=== PATIENT | female | born 1995 | race African-American/Black ===

== ENCOUNTER 2020-06-13 13:50 | Emergency (ER) | payer BC, SELFPAY ==
[2020-06-13] VITALS (21 sets, daily range): BP systolic 108–165; BP diastolic 60–96; PULSE 58–98; RESP 14–27; TEMP 36.1; O2SAT 90–100
--- NOTE | ~2020-06-13 | CT_ITS ---
EXAMINATION: CT brain wo con EXAM DATE: 06/13/2020 14:38 INDICATION: Severe headache. Dizziness. Nausea and vomiting. TECHNIQUE: Spiral CT of the head was performed without contrast. Axial, coronal and sagittal images were reviewed. The dose-length product (DLP) for this examination was 605.33 mGy-cm. The exposure w as tailored according to patient size, and iterative reconstruction (ASIR) was used as additional dos e reduction technique. There is no prior study for comparison. FINDINGS: There is no acute intraparenchymal hemorrhage. No evidence of intraparenchymal brain mass lesion. No evidence of acute infarction. There is no mass effect or midline shift. The ventricles are normal in size. There are no extra-axial collections. There are no acute calvarial fractures. T he orbits are unremarkable. Soft tissue is unremarkable. The visualized sinuses and mastoid air dinah ls are well aerated. IMPRESSION: 1. No acute intracranial findings. Reviewed, dictated and finalized at location B. ALLATION SPECIALIST
--- NOTE | 2020-06-13 14:06 | PC.NURSE ---
Per [facility] EDP Jackson Ambriz to order head CT due to know PMH of h/a, confusion, dizziness.
[2020-06-13 14:29] LABS: Basophils Percent Auto 0.3 % (0.2-1.2); Eosinophils Absolute Auto 0.1 K/mm3 (0-0.3); Hematocrit 37.7 % (37.0-47.0); Hemoglobin 11.5 g/dL (12.0-15.0); Immature Granulocyte Absolute 0.01 K/mm3 (0.00-0.031); Immature Granulocyte Percent A 0.2 % (0-0.5); Lymphocytes Absolute Auto 2.51 K/mm3 (0.9-3.2); Lymphocytes Percent Auto 43.5 % (18.3-44.2); Mean Corpuscular HGB Conc 30.5 g/dl (32-36); Mean Corpuscular Hemoglobin 25.3 pg (26-34); Mean Corpuscular Volume 82.9 fl (80-100); Mean Platelet Volume 8.7 fl (7.4-10.4); Monocytes Absolute Auto 0.4 K/mm3 (0.1-0.6); Monocytes Percent Auto 6.9 % (2.6-8.5); Neutrophils Absolute Auto 2.8 K/mm3 (1.3-6.7); Neutrophils Percent Auto 48.1 % (45.5-73.1); Platelet Count Result 354 k/mm3 (150-375); Red Blood Count 4.55 M/mm3 (4.2-5.4); Red Cell Distribution Width 13.7 % (11.5-14.5); White Blood Count 5.8 K/mm3 (4.5-10.0)
[2020-06-13 14:41] LABS: Anion Gap 7 mmol/L (8-16); Blood Urea Nitrogen 7 mg/dL (7-17); Calcium 8.7 mg/dL (8.4-10.2); Carbon Dioxide 29 mmol/L (22-30); Chloride 104 mmol/L (98-107); Estimated CRCL calculation 120 ml/min; Estimated Glomerular Filt Rate > 60; Glucose 87 mg/dL (65-105); Sodium 140 mmol/L (137-145)
--- NOTE | 2020-06-13 15:33 | ED.HA ---
HPI - Headache General Chief Complaint: Headache Stated Complaint: weakness, confusion, lethargy Time Seen by Provider: 06/13/20 15:22 History of Present Illness HPI Narrative: Brought in by EMS for REYNA, weakness, dizziness, confusion. She says that she has not felt well for a few days. Today while at work she developed a REYNA, blurry vision, nausea, and dizziness. She had the same symptoms a few days ago and was seen at urgent care. No fever, weakness, sick contacts. She has not tried anything for her symptoms. Related Data Allergies Allergy/AdvReac Type Severity Reaction Status Date / Time No Known Allergies Allergy Verified 06/13/20 16:14 Review of Systems Review of Systems: All systems reviewed & are unremarkable except as noted in HPI and below Constitutional: Constitutional: Denies chills, Denies fever(s) and Reports weakness ENT: Reports dizziness and Denies sore throat Cardiovascular: Cardiovascular: Denies chest pain Respiratory: Respiratory: Denies dyspnea Gastrointestinal: Gastrointestinal: Denies abdominal pain and Reports nausea Genitourinary: Genitourinary: Denies dysuria Neurologic: Reports confusion, Reports dizziness and Reports weakness [facility] Past Medical History Medical History (Updated 06/13/20 @ 18:45 by Pillo Nova MD) Healthy adult Social History Social History (Updated 06/13/20 @ 18:43 by Pillo Nova MD) Smoking status: Never smoker Gender identity (if verbalized by the patient): Female Exam Const: General: healthy appearing, no acute distress and alert Orientation/consciousness: patient oriented x3 HENMT: Head: normal to inspection Resp: Effort & Inspection: normal respiratory effort Auscultation: clear to auscultation bilaterally Cardio: Rate: regular rate Rhythm: regular rhythm GI: GI Palp: Yes Soft to palpation and No Tenderness to palpation present (GI) Skin: General skin exam: normal color Neuro: General: patient oriented x3, moves all extremities, no focal motor deficits and CN's II-XI intact bilaterally Cranial nerves: Yes Nystagmus present horizontal Speech: normal speech Extrem: General: normal to inspection Course Vital Signs Vital signs: Vital Signs Temperature 36.1 C L 06/13/20 13:52 Pulse Rate 71 06/13/20 13:52 Respiratory Rate 14 06/13/20 13:52 Blood Pressure 123/79 06/13/20 13:52 Pulse Oximetry 100 06/13/20 13:52 Temperature 36.1 C L 06/13/20 13:52 Pulse Rate 89 06/13/20 19:10 Respiratory Rate 20 06/13/20 19:10 Blood Pressure 126/72 06/13/20 19:10 Pulse Oximetry 100 06/13/20 19:10 MDM - Headache MDM Narrative Medical decision making narrative: She appears to have mild nystagmus, although blinks continuously making it difficult to be sure. CT negative. Labs unremarkable. Feeling better after fluids, meclizine, and IV acetaminophen. Differential Diagnosis Differential diagnosis: Likely migraine and tension headache Medical Records Attestation: I reviewed the patient's medical records. Lab Data Attestation: I reviewed the patient's lab results. Result diagrams: 06/13/20 14:20 06/13/20 14:20 Labs: Lab Results 06/13/20 06/13/20 06/13/20 Range/Units 14:20 14:20 15:33 WBC 5.8 (4.5-10.0) K/mm3 RBC 4.55 (4.2-5.4) M/mm3 Hgb 11.5 L (12.0-15.0) g/dL Hct 37.7 (37.0-47.0) % MCV 82.9 (80-100) fl MCH 25.3 L (26-34) pg MCHC 30.5 L (32-36) g/dl RDW 13.7 (11.5-14.5) % Plt Count 354 (150-375) k/mm3 MPV 8.7 (7.4-10.4) fl Immature Gran % (Auto) 0.2 (0-0.5) % Neut % (Auto) 48.1 (45.5-73.1) % Lymph % (Auto) 43.5 (18.3-44.2) % O'Brien % (Auto) 6.9 (2.6-8.5) % Eos % (Auto) 1.0 (0-4.4) % Baso % (Auto) 0.3 (0.2-1.2) % Lymph # (Auto) 2.51 (0.9-3.2) K/mm3 O'Brien # (Auto) 0.4 (0.1-0.6) K/mm3 Eos # (Auto) 0.1 (0-0.3) K/mm3 Baso # (Auto) 0.0 (0.0-0.1) K/mm3 Abs Immat Gran (auto
[2020-06-13 15:50] LABS: Add Urine Microscopic? YES; Appearance Urine Clear (Clear); Bilirubin Urine Negative (Negative); Blood Urine 3+ (Negative); Color Urine Yellow (Yellow); Glucose Urine UA Negative (Negative); Ketones Urine Negative (Negative); Leukocyte Esterase Ur Negative LEU/UL (Negative); Mucus Urine Rare /lpf; Nitrate Urine Negative (Negative); Protein Urine 1+ mg/dL (Negative); RBC Urine >75 /hpf (0-2); Specific Grav Ur 1.025 (1.001-1.035); Squamous Epithelial Cell Urine Occasional /hpf (Few); Urobilinogen Urine Negative mg/dL (<2.0); WBC Urine 0-3 /hpf
[2020-06-13 16:05] LABS: Amphetamine Screen Urine Negative (Negative); Barbiturate Screen Urine Negative (Negative); Benzodiazepines Screen Urine Negative (Negative); Cannabinoid Screen Urine Negative (Negative); Cocaine Screen Urine Negative (Negative); Methadone Screen Urine Negative (Negative); Opiate Screen Urine Negative (Negative); Phencyclidine Screen Urine Negative (Negative)
[2020-06-13] MEDS: SODIUM CHLORIDE 0.9% IV 1,000 ML 999 ML IV CONT (16:16)
[2020-06-13] MEDS: METOCLOPRAMIDE HCL INJ 10 MG/2 ML VIAL IV PUSH (16:16)
[2020-06-13] MEDS: MECLIZINE HCL 25 MG TABLET PO (16:16)
== END 2020-06-13 19:15 | disposition home or self-care (01) ==
PROVIDERS: Emergency Medicine; Emergency Provider Emergency Medicine; PCP Internal Medicine
DX: R42 Dizziness and giddiness (principal)
CPT/HCPCS: 36415; 70450; 80048; 80307; 81001; 85025; 96365; 96375; 99284; A9270; J0131; J2765; J7030

== ENCOUNTER → 2020-11-14 07:24 | Outpatient (CLI) | payer BC, SELFPAY ==
[2020-11-14 12:16] LABS: Influenza Control Positive
[2020-11-14 19:39] LABS: SARS-CoV-2 RNA PCR Negative
== END ==
PROVIDERS: PCP Internal Medicine; Visit Provider Clinical Nurse Specialist
DX: Z20.822 Contact with and (suspected) exposure to COVID-19 (principal); J02.9 Acute pharyngitis, unspecified
CPT/HCPCS: 87804; C9803; U0003; U0005

== ENCOUNTER 2021-11-15 14:55 | Emergency (ER) | payer BC, SELFPAY ==
[2021-11-15 14:56] VITALS: BP 127/82; PULSE 121; RESP 17; TEMP 37.1; O2SAT 98
--- NOTE | 2021-11-15 16:04 | ED.GENADULT ---
HPI - General Adult General Chief complaint: Upper Respiratory Infection Stated complaint: cough, headache, fever Time Seen by Provider: 11/15/21 15:22 Source: patient Mode of arrival: ambulatory Limitations: no limitations History of Present Illness HPI narrative: Patient is 26 years old -[place] female presents with headache, sore throat, coughing, fever, chills started 4 days ago. Patient denies any nausea, vomiting, abdominal pain, chest pain or shortness of breath. Related Data Home Medications Medication Instructions Recorded Confirmed ferrous sulfate 325 mg (65 mg 325 mg PO DAILY 08/22/20 11/13/20 iron) tablet norethindrone acetate 1.5 1 tablet PO DAILY 05/19/21 mg-ethinyl estradiol 30 mcg tablet Allergies Allergy/AdvReac Type Severity Reaction Status Date / Time amoxicillin Allergy Red body Verified 05/19/21 08:27 and aches Review of Systems Review of Systems: CONSTITUTIONAL: Denies fever, chills, or sweats. EYES: Denies visual changes, redness, or discharge. ENT: Denies rhinorrhea, congestion, sore throat, or otalgia. CARDIOVASCULAR: Denies chest pain, palpitations, or edema. RESPIRATORY: Denies cough or dyspnea. GASTROINTESTINAL: Denies abdominal pain, nausea, vomiting, or diarrhea. GENITOURINARY: Denies dysuria or hematuria. SKIN: Denies rash or itching. MUSCULOSKELETAL: Denies back pain, joint pain, or myalgia. NEUROLOGIC: Denies headache, numbness, or weakness. PSYCHIATRIC: Denies anxiety or depression. PMFSH Past Medical History Medical History Healthy adult Migraines Social History Social History Social History: caffeine-soda Smoking status: Never smoker Alcohol intake: current Alcohol use details: occasionall-Wine Gender identity (if verbalized by the patient): Female Exam Narrative: General appearance: Well-developed, well-nourished Skin: Normal color Head: Normocephalic, nontraumatic Eyes: Clear conjunctiva ENT: Erythematous oropharynx l, ears normal, nose normal Neck: Supple, nontender Chest and respiratory: Airway patent, no respiratory distress, no accessory muscle use Heart: Regular rate/rhythm Abdomen: Soft, nontender, no organomegaly, quiet bowel sounds Vascular: Normal peripheral pulses, normal capillary refill. Musculoskeletal: Normal range of motion, nontender back Neurologic: Alert and oriented ?3, GRIT BLASTER is normal as tested, no gross motor deficit Course Course Emergency Course: Patient had a diagnosis of influenza A, started 4 days ago. Patient is out of the window for Tamiflu treatment. Patient is getting better. Vital Signs Vital signs: Vital Signs Temperature 37.1 C 11/15/21 14:56 Pulse Rate 121 H 11/15/21 14:56 Respiratory Rate 11/15/21 14:56 Blood Pressure 127/82 11/15/21 14:56 Pulse Oximetry 98 11/15/21 14:56 Temperature 37.1 C 11/15/21 14:56 Pulse Rate 121 H 11/15/21 14:56 Respiratory Rate 11/15/21 14:56 Blood Pressure 127/82 11/15/21 14:56 Pulse Oximetry 98 11/15/21 14:56 Medical Decision Making Differential Diagnosis Differential Diagnosis: Viral syndrome, Covid, influenza Vital Signs Vital Signs: Vital Signs Temperature 37.1 C 11/15/21 14:56 Pulse Rate 121 H 11/15/21 14:56 Respiratory Rate 11/15/21 14:56 Blood Pressure 127/82 11/15/21 14:56 Pulse Oximetry 98 11/15/21 14:56 Temperature 37.1 C 11/15/21 14:56 Pulse Rate 121 H 11/15/21 14:56 Respiratory Rate 11/15/21 14:56 Blood Pressure 127/82 11/15/21 14:56 Pulse Oximetry 98 11/15/21 14:56 Lab Data
[2021-11-15 16:32] LABS: Influenza A QL RT-PCR Positive (Negative); Influenza B QL RT-PCR Negative (Negative); SARS-CoV-2 RNA PCR Negative
== END 2021-11-15 17:09 | disposition home or self-care (01) ==
PROVIDERS: Emergency Provider Emergency Medicine; PCP Internal Medicine
DX: J10.1 Influenza due to other identified influenza virus with other respiratory manifestations (principal); Z20.822 Contact with and (suspected) exposure to COVID-19
CPT/HCPCS: 87502; 87804; 99283; C9803; U0003; U0005

== ENCOUNTER 2022-09-10 11:39 | Emergency (ER) | payer BC, SELFPAY ==
--- NOTE | ~2022-09-10 | XR_ITS ---
EXAMINATION: XR chest 2V DATE: 09/10/2022 12:20 INDICATION: Mid chest pain TECHNIQUE: PA and lateral views of the chest are obtained. COMPARISON: None available FINDINGS: The lungs are free of acute opacities. No pleural effusion or pneumothorax. The heart size is normal. The visualized bones and soft tissues are unremarkable. IMPRESSION: 1. No acute cardiopulmonary abnormality. Reviewed, dictated and finalized at location B. CY DIRECTOR
--- NOTE | ~2022-09-10 | US_ITS ---
EXAMINATION: US abdomen limited DATE: 09/10/2022 15:44 INDICATION: Right upper quadrant abdominal pain. TECHNIQUE: Multiple grayscale and Doppler ultrasound images of the abdomen were obtained. COMPARISON: None FINDINGS: The pancreas is obscured by bowel gas. The liver is normal without focal lesion. There is n ormal flow in main portal vein. The gallbladder is normal in size. No gallstones or gallbladder wall thickening. There is no sonographic Zarate sign. The common duct is normal and measures 4 mm. IMPRESSION: 1. Normal right upper quadrant ultrasound. Reviewed, dictated and finalized at location A. DERER HAND
--- NOTE | 2022-09-10 11:49 | ECG_ITS ---
Measurements Intervals [place] Rate: 82 P: 17 SD: 192 QRS: 35 QRSD: 93 T: 29 QT: 326 QTc: 382 Interpretive Statements SINUS RHYTHM NO PREVIOUS ECG AVAILABLE FOR COMPARISON Electronically Signed On 09-11-2022 8:14:23 FIREWALL ENGINEER by Kaycee De Los Santos M.D.
[2022-09-10 12:08] LABS: Basophils Percent Auto 0.3 % (0.2-1.2); Eosinophils Absolute Auto 0.1 K/mm3 (0-0.3); Eosinophils Percent Auto 0.8 % (0-4.4); Hematocrit 35.7 % (37.0-47.0); Immature Granulocyte Absolute 0.03 K/mm3 (0.00-0.031); Immature Granulocyte Percent A 0.4 % (0-0.5); Lymphocytes Absolute Auto 2.87 K/mm3 (0.9-3.2); Lymphocytes Percent Auto 39.4 % (18.3-44.2); Mean Corpuscular HGB Conc 30.8 g/dl (32-36); Mean Corpuscular Hemoglobin 24.4 pg (26-34); Mean Corpuscular Volume 79.2 fl (80-100); Mean Platelet Volume 8.6 fl (7.4-10.4); Monocytes Absolute Auto 0.5 K/mm3 (0.1-0.6); Monocytes Percent Auto 6.9 % (2.6-8.5); Neutrophils Absolute Auto 3.8 K/mm3 (1.3-6.7); Neutrophils Percent Auto 52.2 % (45.5-73.1); Platelet Count Result 363 k/mm3 (150-375); Red Blood Count 4.51 M/mm3 (4.2-5.4); Red Cell Distribution Width 13.3 % (11.5-14.5); White Blood Count 7.3 K/mm3 (4.5-10.0)
[2022-09-10 12:21] LABS: Alanine Aminotransferase 20 U/L (6-35); Albumin Level 4.1 g/dL (3.5-5.1); Alkaline Phosphatase 91 U/L (38-126); Anion Gap 6 mmol/L (8-16); Aspartate Amino Transferase 25 U/L (14-36); Bilirubin,Total 0.4 mg/dL (0.2-1.3); Blood Urea Nitrogen 5 mg/dL (7-17); Calcium 8.6 mg/dL (8.4-10.2); Carbon Dioxide 28 mmol/L (22-30); Chloride 105 mmol/L (98-107); Estimated Glomerular Filt Rate > 60; Glucose 100 mg/dL (65-110); Lipase 59 U/L (23-300); Potassium 3.9 mmol/L (3.4-5.0); Sodium 139 mmol/L (137-145)
[2022-09-10 12:24] LABS: INR 1.1; Prothrombin Time 13.5 Seconds (11.1-14.7)
[2022-09-10 12:25] LABS: Partial Thromboplastin Time 26.4 SECONDS (22.3-36.8)
[2022-09-10 12:31] LABS: Troponin I < 0.012 ng/mL (0.000-0.034)
[2022-09-10 12:50] VITALS: BP 113/65; PULSE 76; RESP 14; TEMP 36.8; O2SAT 98
[2022-09-10 15:29] VITALS: BP 118/95; PULSE 87; RESP 16; O2SAT 100
[2022-09-10 15:30] LABS: Troponin I < 0.012 ng/mL (0.000-0.034)
--- NOTE | 2022-09-10 15:39 | ED.CHESTPAIN ---
HPI - Chest Pain General Chief Complaint: Chest Pain Stated Complaint: Chest Pain Time Seen by Provider: 09/10/22 14:07 Source: patient Mode of arrival: ambulatory Limitations: no limitations History of Present Illness HPI narrative: Patient is a 27-year-old female who presents ED with report of right-sided chest pain. Patient reports she was sitting in class around 10 AM this morning when she suddenly developed a sharp pain in her right lower chest. She states the pain was constant for approximately 2 hours before resolving on its own. She did not take anything for the pain. Pain was worse with movement and taking deep breaths. She denied difficulty breathing or shortness of breath, however. Denies ever having history of similar pain. Denies any pain currently. Denies abdominal pain, nausea, vomiting, fevers, recent cough or cold symptoms, lower extremity pain or swelling. Patient is on a control patch. Denies recent long distance travel. Related Data Home Medications Medication Instructions Recorded Confirmed ferrous sulfate 325 mg (65 mg 325 mg PO DAILY 08/22/20 11/13/20 iron) tablet (FeroSul) norethindrone acetate 1.5 1 tablet PO DAILY 05/19/21 mg-ethinyl estradiol 30 mcg tablet (Junel) Allergies Allergy/AdvReac Type Severity Reaction Status Date / Time amoxicillin Allergy Red body Verified 05/19/21 08:27 and aches Review of Systems Review of Systems: CONSTITUTIONAL: Denies fever, chills, or sweats. ENT: Denies rhinorrhea, congestion, sore throat. CARDIOVASCULAR: See HPI. RESPIRATORY: See HPI. GASTROINTESTINAL: Denies abdominal pain, nausea, vomiting, or diarrhea. GENITOURINARY: Denies dysuria or hematuria. All systems reviewed & are unremarkable except as noted in HPI and below [facility] Past Medical History Medical History Healthy adult Surgical History Surgical History (Updated 09/10/22 @ 15:41 by Vale Macedo PA-C) No pertinent past surgical history Social History Social History Social History: caffeine-soda Smoking status: Never smoker Alcohol intake: current Alcohol use details: occasionall-Wine Gender identity (if verbalized by the patient): Female Exam Narrative: GENERAL: Well appearing, morbidly obese, non-toxic, in no acute distress. HEAD: Normocephalic, atraumatic. NECK: Supple. No adenopathy, no masses. RESPIRATORY: Airway patent, respirations nonlabored. Clear to auscultation bilaterally, no rales, rhonchi, wheezing. CARDIOVASCULAR: Regular rate and rhythm without murmurs, rubs, or gallops. Radial pulses 2+ and equal bilaterally. ABDOMINAL: Soft, mild tenderness to palpation throughout RUQ, nondistended, no hepatosplenomegaly. Normoactive BS. MUSCULOSKELETAL: Moves all extremities. Strength/ROM intact without gross deformities. No significant chest wall tenderness to palpation. No edema. SKIN: Warm, dry, normal color. No rashes. NEURO: A&O X3. Speech clear. Cranial nerves II-XII grossly intact. Steady gait. No ataxic movements. PSYCHIATRIC: Appropriate mood and affect. Normal interaction. Course Vital Signs Vital signs: Vital Signs Temperature 98.3 F 09/10/22 12:50 Pulse Rate 76 09/10/22 12:50 Respiratory Rate 14 09/10/22 12:50 Blood Pressure 113/65 09/10/22 12:50 Pulse Oximetry 98 09/10/22 12:50 Oxygen Delivery Room Air 09/10/22 12:50 Temperature 98.3 F 09/10/22 12:50 Pulse Rate 80 09/10/22 17:07 Respiratory Rate 16 09/10/22 17:07 Blood Pressure 125/77 09/10/22 17:07 Pulse Oximetry 100 09/10/22 17:07 Oxygen Delivery Room Air 09/10/22 12:50 MDM - Chest Pain MDM Narrative Medical decision making narrative: Patient presented to ED with 2-hour episode of right-sided lower chest pain earlier today. Vitals stable upon arrival. Patient did have mild right upper quadrant ten
[2022-09-10 15:53] LABS: D Dimer 0.46 ug/mL (<0.48)
[2022-09-10 17:07] VITALS: BP 125/77; PULSE 80; RESP 16; O2SAT 100
== END 2022-09-10 17:09 | disposition home or self-care (01) ==
PROVIDERS: Emergency Medicine; Emergency Provider Physician Assistant; PCP Internal Medicine
DX: R07.9 Chest pain, unspecified (principal)
CPT/HCPCS: 36415; 71046; 76705; 80053; 83690; 84484; 85025; 85380; 85610; 85730; 93005; 99284

== ENCOUNTER 2023-01-12 07:23 | Emergency (ER) | payer BC, SELFPAY ==
[2023-01-13 12:40] LABS: Strep Group A RT-PCR Not Detected (Negative)
== END 2023-01-12 09:11 | disposition home or self-care (01) ==
LOC: ANHED 21:42
PROVIDERS: Emergency Provider Emergency Medicine; PCP Internal Medicine
DX: J02.9 Acute pharyngitis, unspecified (principal); R51.9 Headache, unspecified
CPT/HCPCS: 87651; 96372; 99283; J1885; J8540

== ENCOUNTER 2023-01-13 10:44 | Emergency (ER) | payer BC, SELFPAY ==
[2023-01-13] VITALS (13 sets, daily range): BP systolic 119–135; BP diastolic 69–84; PULSE 77–97; RESP 16–19; TEMP 37.3; O2SAT 97–100
--- NOTE | ~2023-01-13 | XR_ITS ---
EXAMINATION: XR chest 2V DATE: 01/13/2023 12:39 INDICATION: Productive cough TECHNIQUE: AP and lateral views of the chest are obtained. COMPARISON: 09/10/2022 FINDINGS: The lungs are free of acute opacities. No pleural effusion or pneumothorax. The cardiomedia stinal silhouette is normal. The visualized bones and soft tissues are unremarkable. IMPRESSION: 1. No acute cardiopulmonary abnormality. Reviewed, dictated and finalized at location A.
[2023-01-13 12:19] LABS: Strep Group A RT-PCR NOT DETECTED (Negative)
--- NOTE | 2023-01-13 12:23 | ED.SOB ---
HPI - SOB/Dyspnea General Chief Complaint: Shortness of Breath/Dyspnea Stated Complaint: shortness of breath/request covid test Time Seen by Provider: 01/13/23 12:03 History of Present Illness HPI Narrative: Patient is a 27-year-old female presenting with cough and sore throat. Patient states that for the last several days she has had nasal congestion and a sore throat. States that she has been also having a productive cough. States that her voice has been sounding hoarse. States that she was here yesterday and she tested negative for strep. States that she received some medications which did temporarily improve her pain. States that unfortunately her sore throat has returned and it has been worsened with coughing. States that she sometimes does have chest pain when she coughs. Denies fevers or chills, abdominal pain, nausea or vomiting, leg swelling, diarrhea. Related Data Home Medications Medication Instructions Recorded Confirmed ferrous sulfate 325 mg (65 mg 325 mg PO DAILY 08/22/20 11/13/20 iron) tablet (FeroSul) norethindrone acetate 1.5 1 tablet PO DAILY 05/19/21 mg-ethinyl estradiol 30 mcg tablet (Junel) Allergies Allergy/AdvReac Type Severity Reaction Status Date / Time amoxicillin Allergy Red body Verified 05/19/21 08:27 and aches Review of Systems Review of Systems: All systems reviewed & are unremarkable except as noted in HPI and below PMFSH Past Medical History Medical History Healthy adult Surgical History Surgical History No pertinent past surgical history Social History Social History Social History: caffeine-soda Smoking status: Never smoker Alcohol intake: current Alcohol use details: occasionall-Wine Gender identity (if verbalized by the patient): Female Exam Narrative: GENERAL: Well-appearing, well-nourished, and in no acute distress. HEAD: Normocephalic, atraumatic. EYES: PERRLA and EOMI. ENT: Nares clear, no rhinorrhea or epistaxis. Mucous membranes moist. Mildly erythematous tonsils, no exudates or significant swelling NECK: Supple. CHEST: Clear to auscultation. No respiratory distress. HEART: Regular rate and rhythm. No murmur heard. Normal peripheral pulses. ABDOMEN: Soft, nontender, nondistended EXTREMITIES: Normal range of motion. No edema. SKIN: Warm, dry, no rash. NEURO: No focal deficits. Alert and oriented x3. PSYCH: Normal mood and affect. Course Vital Signs Vital signs: Vital Signs Temperature 99.1 F 01/13/23 10:49 Pulse Rate 90 01/13/23 10:49 Respiratory Rate 18 01/13/23 10:49 Blood Pressure 128/77 01/13/23 10:49 Pulse Oximetry 99 01/13/23 10:49 Oxygen Delivery Room Air 01/13/23 10:49 Temperature 99.1 F 01/13/23 10:49 Pulse Rate 97 01/13/23 14:27 Respiratory Rate 17 01/13/23 14:27 Blood Pressure 120/70 01/13/23 14:27 Pulse Oximetry 98 01/13/23 14:27 Oxygen Delivery Room Air 01/13/23 11:25 MDM - SOB/Dyspnea MDM Narrative Medical decision making narrative: Patient is a 27-year-old female presenting with sore throat and cough for several days. Vitals within normal limits. Patient is well-appearing and in no acute distress. Exam remarkable for the above. Plan to check her for flu and COVID and obtain x-ray. Will treat with Tylenol and ibuprofen. States that she received steroids yesterday. X-ray reveals no focal consolidations, effusions, pneumothorax. Patient was negative for influenza, RSV, COVID, strep. On reevaluation, she is sleeping comfortably. Discussed the work-up. Advised that she continue using ibuprofen and Tylenol for pain control. Advised PCP follow-up. Appropriate return precautions given. Patient voiced understanding and is agreeable plan. Discharged in stable condition. Differential
[2023-01-13 12:31] LABS: Influenza A QL RT-PCR Negative (Negative); Influenza B QL RT-PCR Negative (Negative); RSV RNA, RT-PCR Negative (Negative); SARS-CoV-2 RNA PCR Negative (Negative)
[2023-01-13] MEDS: IBUPROFEN 400 MG TABLET 800 MG PO (12:31)
[2023-01-13] MEDS: ACETAMINOPHEN 500 MG TABLET 1000 MG PO (12:31)
== END 2023-01-13 14:31 | disposition home or self-care (01) ==
PROVIDERS: General Practice; Emergency Provider Emergency Medicine; PCP Internal Medicine
DX: J06.9 Acute upper respiratory infection, unspecified (principal); Z20.822 Contact with and (suspected) exposure to COVID-19
CPT/HCPCS: 71046; 87637; 87651; 99283; A9270

== ENCOUNTER 2023-02-09 11:26 | Emergency (ER) | payer BC, SELFPAY ==
--- NOTE | ~2023-02-09 | CT_ITS ---
CT of the Abdomen and Pelvis: Indication: Abdominal pain Technique: 2.5 mm axial scans were obtained through the abdomen and pelvis following intravenous adm inistration of 100 cc of Omnipaque 350. Dose reduction technique was used on this scan by utilizing a utomated exposure control and iterative reconstruction technique. The dose-length product (DLP) was 9 43.91 mGy-cm. Findings: Scans through the lung bases are unremarkable. The liver, spleen, pancreas, gallbladder, adrenals and kidneys are within normal limits. No evidence of aortic aneurysm. No lymphadenopathy. Questionable minimal wall thickening descending/sigmoid colon versus underdistention. No abscess or f ree air. No obstruction. Images through the pelvis were performed. Urinary bladder unremarkable. No adnexal mass evident. No a scites. Impression: Questionable minimal wall thickening of the descending/sigmoid: Versus underdistention. Correlate for any possibility of infectious/inflammatory colitis. Reviewed, dictated and finalized at [facility]. Impression: Questionable minimal wall thickening of the descending/sigmoid: Versus underdis tention. Correlate for any possibility of infectious/inflammatory colitis.
[2023-02-09 11:41] VITALS: BP 136/79; PULSE 106; RESP 18; TEMP 36.9; O2SAT 99
[2023-02-09 12:53] LABS: Basophils Percent Auto 0.2 % (0.2-1.2); Eosinophils Absolute Auto 0.1 K/mm3 (0-0.3); Eosinophils Percent Auto 0.7 % (0-4.4); Hematocrit 36.1 % (37.0-47.0); Hemoglobin 10.9 g/dL (12.0-15.0); Immature Granulocyte Absolute 0.03 K/mm3 (0.00-0.031); Immature Granulocyte Percent A 0.3 % (0-0.5); Lymphocytes Absolute Auto 2.25 K/mm3 (0.9-3.2); Lymphocytes Percent Auto 19.8 % (18.3-44.2); Mean Corpuscular HGB Conc 30.2 g/dl (32-36); Mean Corpuscular Hemoglobin 24.9 pg (26-34); Mean Corpuscular Volume 82.4 fl (80-100); Mean Platelet Volume 8.8 fl (7.4-10.4); Monocytes Absolute Auto 0.8 K/mm3 (0.1-0.6); Monocytes Percent Auto 6.6 % (2.6-8.5); Neutrophils Absolute Auto 8.2 K/mm3 (1.3-6.7); Neutrophils Percent Auto 72.4 % (45.5-73.1); Platelet Count Result 358 k/mm3 (150-375); Red Blood Count 4.38 M/mm3 (4.2-5.4); Red Cell Distribution Width 14.6 % (11.5-14.5); White Blood Count 11.3 K/mm3 (4.5-10.0)
--- NOTE | 2023-02-09 12:55 | ED.ABDPAIN ---
HPI - Abdominal Pain General Chief Complaint: Abdominal Pain Stated Complaint: left lower abdominal pain that began yesterday Time Seen by Provider: 02/09/23 12:13 Source: patient History of Present Illness HPI narrative: 27 years old -[place] female dropped off by her roommate because of left abdominal pain radiating to left flank area started yesterday, sharp, no aggravating or relieving factors. She denies any fever chills, nausea, vomiting. Patient reports that it hurt when she urinated, with some urgency. She denies any vaginal bleeding or discharge, no history of abdominal surgery. Patient does not smoke or drink or uses drugs. On contraceptive patch Related Data Home Medications Medication Instructions Recorded Confirmed ferrous sulfate 325 mg (65 mg 325 mg PO DAILY 08/22/20 11/13/20 iron) tablet (FeroSul) norethindrone acetate 1.5 1 tablet PO DAILY 05/19/21 mg-ethinyl estradiol 30 mcg tablet (Junel) Allergies Allergy/AdvReac Type Severity Reaction Status Date / Time amoxicillin Allergy Red body Verified 02/09/23 12:14 and aches Penicillins Allergy Rash Verified 02/09/23 12:14 Review of Systems Review of Systems: All systems reviewed & are unremarkable except as noted in HPI and below PMFSH Past Medical History Medical History Healthy adult Surgical History Surgical History No pertinent past surgical history Social History Social History Social History: caffeine-soda Smoking status: Never smoker Alcohol intake: current Alcohol use details: occasionall-Wine Gender identity (if verbalized by the patient): Female Exam Narrative: General appearance: Well-developed, well-nourished Skin: Normal color Head: Normocephalic, nontraumatic Eyes: Clear conjunctiva ENT: Oropharynx normal, ears normal, nose normal Neck: Supple, nontender Chest and respiratory: Airway patent, no respiratory distress, no accessory muscle use Heart: Regular rate/rhythm Abdomen: Soft, moderate tenderness lower abdomen bilaterally, left upper quadrant, left flank area r, no organomegaly, quiet bowel sounds Vascular: Normal peripheral pulses, normal capillary refill. Musculoskeletal: Normal range of motion, nontender back Neurologic: Alert and oriented ?3, SPEECH THERAPY ASSISTANT is normal as tested, no gross motor deficit Course Vital Signs Vital signs: Vital Signs Temperature 36.9 C 02/09/23 11:41 Pulse Rate 106 H 02/09/23 11:41 Respiratory Rate 18 02/09/23 11:41 Blood Pressure 136/79 02/09/23 11:41 Pulse Oximetry 99 02/09/23 11:41 Oxygen Delivery Room Air 02/09/23 11:41 Temperature 36.9 C 02/09/23 11:41 Pulse Rate 90 02/09/23 13:05 Respiratory Rate 14 02/09/23 13:05 Blood Pressure 137/84 02/09/23 13:05 Pulse Oximetry 97 02/09/23 13:05 Oxygen Delivery Room Air 02/09/23 11:41 MDM - Abdominal Pain MDM Narrative Medical decision making narrative: 27 years old -[place] female presents with left abdominal pain radiating to left flank area, sharp, Physical examination was consistent with left lower quadrant tenderness and slight left flank tenderness. Differential diagnosis include urinary tract infection, pyelonephritis, diverticulitis, constipation, ruptured ovarian cyst. Work-up today include CBC, CMP, lipase, urine analysis, CT abdomen and pelvis with IV contrast showed WBC of 11.3, urine analysis showed 3+ protein, 3+ blood, positive nitrate, 3+ leukoesterase, 21?50 urine RBCs, more than 100 urine WBC, 4+ bacteria in
[2023-02-09] MEDS: SODIUM CHLORIDE 0.9% IV 1,000 ML 999 ML IV CONT (12:59)
[2023-02-09] MEDS: ONDANSETRON INJ 4 MG/2 ML VIAL IV PUSH (12:59)
[2023-02-09] MEDS: HYDROmorphone HCL INJ (*CRX) 1 MG/ML SYR 0.5 MG IV PUSH (12:59)
[2023-02-09 13:00] LABS: Appearance Urine Turbid (Clear); Bacteria Urine 4+ /hpf; Bilirubin Urine Negative (Negative); Blood Urine 3+ (Negative); Color Urine Yellow (Yellow); Glucose Urine UA Negative (Negative); Ketones Urine Negative (Negative); Leukocyte Esterase Ur 3+ LEU/UL (Negative); Nitrate Urine Positive (Negative); Non Pathogenic Casts 0-2; Protein Urine 3+ mg/dL (Negative); RBC Urine 21-50 /hpf (0-2); Specific Grav Ur 1.011 (1.001-1.035); Squamous Epithelial Cell Urine Few /hpf (Few); Urobilinogen Urine 0.2 mg/dL (<2.0); WBC Urine >100 /hpf; pH Urine 5.5 (5.0-9.0)
[2023-02-09 13:01] LABS: Alanine Aminotransferase 20 U/L (6-35); Albumin Level 4.2 g/dL (3.5-5.1); Alkaline Phosphatase 78 U/L (38-126); Anion Gap 2 mmol/L (8-16); Aspartate Amino Transferase 23 U/L (14-36); Bilirubin,Total 0.9 mg/dL (0.2-1.3); Blood Urea Nitrogen 5 mg/dL (7-17); Carbon Dioxide 32 mmol/L (22-30); Chloride 103 mmol/L (98-107); Estimated CRCL calculation 103 ml/min; Estimated Glomerular Filt Rate > 60; Glucose 101 mg/dL (65-110); Lipase 32 U/L (23-300); Potassium 3.6 mmol/L (3.4-5.0); Sodium 137 mmol/L (137-145)
[2023-02-09 13:03] LABS: Add Urine Microscopic? YES
[2023-02-09 13:05] VITALS: BP 137/84; PULSE 90; RESP 14; O2SAT 97
--- NOTE | 2023-02-09 13:37 | PC.NURSE ---
Pt to CT scan at this time.
[2023-02-09] MEDS: metroNIDAZOLE 250 MG TABLET 500 MG PO (14:37)
[2023-02-09] MEDS: levoFLOXacin 750 MG TABLET PO (14:51)
== END 2023-02-09 14:52 | disposition home or self-care (01) ==
PROVIDERS: Emergency Medicine; Emergency Provider Emergency Medicine; PCP Internal Medicine
DX: K52.9 Noninfective gastroenteritis and colitis, unspecified (principal); N39.0 Urinary tract infection, site not specified
CPT/HCPCS: 36415; 74177; 80053; 81001; 81025; 83690; 85025; 87077; 87086; 87088; 87186; 96361; 96374; 96375; 99284; A9270; J1170; J2405; J7030; Q9967

== ENCOUNTER 2023-04-27 20:14 | Emergency (ER) | payer BC, SELFPAY ==
[2023-04-27 20:17] VITALS: BP 128/79; PULSE 86; RESP 16; TEMP 37.2; O2SAT 99
[2023-04-27 20:59] LABS: Strep Group A RT-PCR NOT DETECTED (Negative)
[2023-04-27 21:10] LABS: Influenza A QL RT-PCR Negative (Negative); Influenza B QL RT-PCR Negative (Negative); RSV RNA, RT-PCR Negative (Negative); SARS-CoV-2 RNA PCR Negative (Negative)
--- NOTE | 2023-04-27 21:22 | ED.URI ---
HPI - URI/Sore Throat General Chief Complaint: Upper Respiratory Infection Stated Complaint: sore throat, headache Time Seen by Provider: 04/27/23 20:27 History of Present Illness HPI Narrative: Patient states that 2 days ago she started having a stuffy nose, cough, body aches, she has taken TheraFlu without much improvement, she states that today she is feeling slightly better. No fevers or chills or sick contacts. Related Data Home Medications Medication Instructions Recorded Confirmed ferrous sulfate 325 mg (65 mg 325 mg PO DAILY 08/22/20 11/13/20 iron) tablet (FeroSul) norethindrone acetate 1.5 1 tablet PO DAILY 05/19/21 mg-ethinyl estradiol 30 mcg tablet (Junel) Allergies Allergy/AdvReac Type Severity Reaction Status Date / Time amoxicillin Allergy Red body Verified 02/09/23 12:14 and aches Penicillins Allergy Rash Verified 02/09/23 12:14 Review of Systems Review of Systems: CONST: No fever. HEENT: Runny nose C/V: No chest pain RESP: Cough GI: No nausea : No dysuria. M/S: No joint pain. SKIN: No rash. NEURO: [No headache or focal numbness or weakness] PSYCH: [No depression] [facility] Past Medical History Medical History Healthy adult Surgical History Surgical History No pertinent past surgical history Social History Social History Social History: caffeine-soda Smoking status: Never smoker Alcohol intake: current Alcohol use details: occasionall-Wine Gender identity (if verbalized by the patient): Female Exam Narrative: EXAMINATION OF ORGAN SYSTEMS/BODY AREAS: Constitutional: Vital signs per nursing GENERAL:[No acute distress, non-toxic appearing.] HEAD: Normal with no signs of head trauma. EYES: EOMI, conjunctiva normal ENT: Congestion, slightly erythematous pharynx LUNGS: Nonlabored breathing. HEART: [Regular rate and rhythm] ABD: [Soft], [nontender to palpation] EXT: Normal range of motion SKIN: [No rashes or lesions.] NEURO: [Alert and oriented x 3. No gross focal sensory or strength deficits.] PSYCH: Normal affect Course Vital Signs Vital signs: Vital Signs Temperature 98.9 F 04/27/23 20:17 Pulse Rate 86 04/27/23 20:17 Respiratory Rate 16 04/27/23 20:17 Blood Pressure 128/79 04/27/23 20:17 Pulse Oximetry 99 04/27/23 20:17 Oxygen Delivery Room Air 04/27/23 20:17 Temperature 98.9 F 04/27/23 20:17 Pulse Rate 86 04/27/23 20:17 Respiratory Rate 16 04/27/23 20:17 Blood Pressure 128/79 04/27/23 20:17 Pulse Oximetry 99 04/27/23 20:17 Oxygen Delivery Room Air 04/27/23 20:17 MDM - URI/Sore Throat MDM Narrative Medical decision making narrative: ED COURSE AND MEDICAL DECISION MAKING: This 27F year old patient presents with symptoms most suggestive of viral upper respiratory tract infection. Lungs are clear bilaterally without any respiratory distress or accessory muscle use. Flu, RSV, COVID, strep swabs negative. She is discharged home in stable condition with expectant management. Return precautions were provided. Lab Data Labs: Lab Results 04/27/23 Range/Units 20:29 Influenza A (RT-PCR) Negative (Negative) Influenza B (RT-PCR) Negative (Negative) RSV (RT-PCR) Negative (Negative) SARS-CoV-2 RNA (RT-PCR) Negative (Negative) Group A Strep (PCR) Not detected (Negative) Discharge Plan Discharge Clinical Impression: Upper respiratory infection Patient Disposition: Home, Self-Care Condition: Stable Instructions: Antibiotic Form, Cold Symptoms (ED) Additional Instructions: Please follow up with your doctor; you can always return for any further issues. Prescriptions: New acetaminophen [Tylenol Extra Strength] 500 mg tablet 1,000 mg PO Q6H PRN (Reason: pain) Qty: 50 0RF ibuprofen 600
[2023-04-27 21:32] VITALS: BP 134/77; PULSE 77; RESP 15; TEMP 36.7; O2SAT 100
== END 2023-04-27 21:33 | disposition home or self-care (01) ==
PROVIDERS: Emergency Medicine; Emergency Provider Emergency Medicine; PCP Internal Medicine
DX: J06.9 Acute upper respiratory infection, unspecified (principal); Z20.822 Contact with and (suspected) exposure to COVID-19
CPT/HCPCS: 87637; 87651; 99283

== ENCOUNTER 2023-06-30 23:19 | Emergency (ER) | payer BC, SELFPAY ==
[2023-06-30 23:24] VITALS: BP 143/81; PULSE 105; RESP 18; TEMP 36.8; O2SAT 99
[2023-07-01 00:39] VITALS: BP 168/88; PULSE 102; RESP 16; TEMP 37.1; O2SAT 100
[2023-07-01 00:43] VITALS: O2SAT 100
[2023-07-01 01:54] LABS: Strep Group A RT-PCR NOT DETECTED (Negative)
[2023-07-01 01:55] LABS: Influenza A QL RT-PCR Negative (Negative); Influenza B QL RT-PCR Negative (Negative); RSV RNA, RT-PCR Positive (Negative); SARS-CoV-2 RNA PCR Negative (Negative)
--- NOTE | 2023-07-01 03:05 | ED.URI ---
HPI - URI/Sore Throat General Chief Complaint: Upper Respiratory Infection Stated Complaint: dizzy, upper resp Time Seen by Provider: 07/01/23 02:55 Source: patient Mode of arrival: ambulatory Limitations: no limitations History of Present Illness HPI Narrative: Patient is a 27 y/o female who presents to the ED with c/o URI sx's. Patient reports she lost her voice 2 days ago. She was seen at an urgent care and diagnosed with laryngitis. She was started on prednisone. She has since also developed headache, cough, myalgias, rhinorrhea, congestion, sore throat, intermittent wheezing. Patient took TheraFlu at the onset of her symptoms, but has not tried anything further for her symptoms. Denies fevers, shortness breath, chest pain, nausea, vomiting. Related Data Home Medications Medication Instructions Recorded Confirmed ferrous sulfate 325 mg (65 mg 325 mg PO DAILY 08/22/20 11/13/20 iron) tablet (FeroSul) norethindrone acetate 1.5 1 tablet PO DAILY 05/19/21 mg-ethinyl estradiol 30 mcg tablet (Junel) Allergies Allergy/AdvReac Type Severity Reaction Status Date / Time amoxicillin Allergy Red body Verified 02/09/23 12:14 and aches Penicillins Allergy Rash Verified 02/09/23 12:14 Review of Systems Review of Systems: CONSTITUTIONAL: Denies fever, chills, or sweats. ENT: See HPI. CARDIOVASCULAR: Denies chest pain. RESPIRATORY: See HPI. GASTROINTESTINAL: Denies abdominal pain, nausea, vomiting. MUSCULOSKELETAL: Reports myalgia. NEUROLOGIC: See HPI. All systems reviewed & are unremarkable except as noted in HPI and below [facility] Past Medical History Medical History Healthy adult Surgical History Surgical History No pertinent past surgical history Social History Social History Social History: caffeine-soda Smoking status: Never smoker Alcohol intake: current Alcohol use details: occasionall-Wine Gender identity (if verbalized by the patient): Female Exam Narrative: GENERAL: Well appearing, obese with BMI 38.4, non-toxic, in no acute distress. HEAD: Normocephalic, atraumatic. ENT: Minimal erythema to posterior pharynx. No tonsillar hypertrophy or exudate. Uvula midline. Mucous membranes moist. Nasal quality to her voice. NECK: Supple. No adenopathy, no masses. RESPIRATORY: Airway patent, respirations nonlabored. Clear to auscultation bilaterally, no rales, rhonchi, wheezing. No focal lung sounds. CARDIOVASCULAR: Regular rate and rhythm without murmurs, rubs, or gallops. Radial pulses 2+ and equal bilaterally. MUSCULOSKELETAL: Moves all extremities. No gross deformities. SKIN: Warm, dry, normal color. No rashes. NEURO: A&O X3. Speech clear. Cranial nerves II-XII grossly intact. Steady gait. No ataxic movements. PSYCHIATRIC: Appropriate mood and affect. Normal interaction. Course Vital Signs Vital signs: Vital Signs Temperature 98.2 F 06/30/23 23:24 Pulse Rate 105 H 06/30/23 23:24 Respiratory Rate 18 06/30/23 23:24 Blood Pressure 143/81 H 06/30/23 23:24 Pulse Oximetry 99 06/30/23 23:24 Oxygen Delivery Room Air 06/30/23 23:24 Temperature 98.8 F 07/01/23 00:39 Pulse Rate 102 H 07/01/23 00:39 Respiratory Rate 16 07/01/23 00:39 Blood Pressure 168/88 H 07/01/23 00:39 Pulse Oximetry 100 07/01/23 00:43 Oxygen Delivery Room Air 07/01/23 00:43 MDM - URI/Sore Throat MDM Narrative Medical decision making narrative: Patient presented to ED with 2 day history of URI symptoms. Vitals stable. No chest pain or shortness breath. Afebrile. RSV testing positive. Patient updated on laboratory results, management of viral infection. No wheezing heard on my auscultation, the patient does report she has an albuterol inhaler at home. Discussed proper use of
[2023-07-01] MEDS: ACETAMINOPHEN 500 MG TABLET 1000 MG PO (03:28)
[2023-07-01] MEDS: IBUPROFEN 600 MG TABLET PO (03:28)
[2023-07-01] MEDS: BENZONATATE 100 MG CAPSULE 200 MG PO (03:28)
[2023-07-01 03:47] VITALS: BP 145/88; PULSE 94; RESP 15; O2SAT 97
== END 2023-07-01 03:49 | disposition home or self-care (01) ==
PROVIDERS: Emergency Medicine; Emergency Provider Physician Assistant; PCP Internal Medicine
DX: J06.9 Acute upper respiratory infection, unspecified (principal); B97.4 Respiratory syncytial virus as the cause of diseases classified elsewhere; Z20.822 Contact with and (suspected) exposure to COVID-19
CPT/HCPCS: 87637; 87651; 99283; A9270